=== PATIENT | female | born 1965 | race Caucasian/White ===

== ENCOUNTER 2023-08-17 16:12 | Inpatient (IN) | payer MEDICARE, MEDICAID ==
[~2023-08-17] VITALS: Ht 167.6 cm; Wt 67.1 kg
[2023-08-17 16:59] LABS: BASOPHILS # (AUTO) 0.1 K/uL (0.0-0.2); BASOPHILS % (AUTO) 0.5 % (0.0-2.0); EOSINOPHILS % (AUTO) 0.2 % (0.0-6.0); HEMATOCRIT 39 % (33-45); HEMOGLOBIN 12.8 g/dL (11.5-14.8); LYMPHOCYTES # (AUTO) 0.6 K/uL (0.8-4.8); MEAN CORPUSCULAR HEMOGLOBIN 30 PG (26.0-33.0); MEAN CORPUSCULAR HGB CONC 33 g/dl (31.0-36.0); MEAN CORPUSCULAR VOLUME 91 fL (82-100); MONOCYTES # (AUTO) 0.7 K/uL (0.1-1.30); MONOCYTES % (AUTO) 5.7 % (2.0-12.0); NEUTROPHILS # (AUTO) 10.4 K/uL (1.8-8.9); NEUTROPHILS % (AUTO) 88.6 % (43.0-81.0); PLATELET COUNT (AUTO) 320 K/uL (150-450); RED BLOOD CELL COUNT(AUTO) 4.27 MIL/uL (4.0-5.2); WHITE BLOOD COUNT (AUTO) 11.7 K/uL (4.3-11.0)
[2023-08-17 17:17] LABS: ALANINE AMINOTRANSFERASE 24 U/L (12-78); ALBUMIN 4.1 g/dL (3.4-5.0); ALKALINE PHOSPHATASE 106 U/L (46-116); ASPARTATE AMINOTRANSFERASE 20 U/L (15-37); BILIRUBIN,DIRECT 0.1 mg/dL (0.0-0.2); BILIRUBIN,TOTAL 0.4 mg/dL (0.2-1.0); CALCIUM, SERUM 9.7 mg/dL (8.5-10.1); CARBON DIOXIDE 23 mmol/L (21-32); CHLORIDE 103 mmol/L (98-107); CREATININE 1.3 mg/dL (0.6-1.3); GLUCOSE 198 mg/dL (74-106); POTASSIUM 4.4 mmol/L (3.5-5.1); SODIUM SERUM 140 mmol/L (136-145); TOTAL PROTEIN, SERUM 8.1 g/dL (6.4-8.2); UREA NITROGEN, BLOOD 17 mg/dL (7-18)
[2023-08-17 17:20] LABS: ACETAMINOPHEN <10 ug/ml (10-30); ALCOHOL, BLOOD < 3 mg/dL (0-10); SALICYLATE 2.2 mg/dL (2.8-20.0)
[2023-08-17] MEDS ORDERED: ASPI-1169 PO (17:37)
[2023-08-17] MEDS ORDERED: SITA1TAB2 PO (17:37)
[2023-08-17] MEDS ORDERED: MULT-754 PO (17:37)
[2023-08-17] MEDS ORDERED: PARO30TA4 PO (17:37)
[2023-08-17] MEDS ORDERED: LINA290C PO (17:37)
[2023-08-17] MEDS ORDERED: CYAN-51 PO (17:37)
[2023-08-17] MEDS ORDERED: AMLO5TAB4 PO (17:37)
[2023-08-17] MEDS ORDERED: BUSP15TA3 PO (17:37)
[2023-08-17] MEDS ORDERED: LACT10SO68 PO (17:37)
[2023-08-17] MEDS ORDERED: QUET200T PO (17:37)
[2023-08-17] MEDS ORDERED: OMEG1CAP40 PO (17:37)
[2023-08-17] MEDS ORDERED: LOSA50TA39 PO (17:37)
[2023-08-17] MEDS ORDERED: SIMV-49 PO (17:37)
[2023-08-17] MEDS ORDERED: MELATONIN GUMMY PO (17:37)
[2023-08-17] MEDS ORDERED: QUET50TA PO (17:37)
[2023-08-17] MEDS ORDERED: CHOL100043 PO (17:37)
[2023-08-17] MEDS ORDERED: OLANZAPINE 10 MG VIAL IM ONE (17:51)
[2023-08-17] MEDS ORDERED: LORAZEPAM INJ 2 MG/ML VIAL ONE (17:52)
[2023-08-17] MEDS: LORAZEPAM INJ 2 MG/ML VIAL IM ONE (18:00)
[2023-08-17] MEDS: OLANZAPINE 10 MG VIAL IM ONE (18:00)
[2023-08-17] MEDS: IV NS 0.9% 1,000 ML BAG IV PRN (21:00)
[2023-08-17 21:09] VITALS: O2SAT 100
[2023-08-17] MEDS: BLOOD SUGAR DIAGNOSTIC 1 EACH STRIP IN ONE (22:17)
[2023-08-17] MEDS ORDERED: LORAZEPAM 0.5 MG TABLET PO PRN (22:30)
[2023-08-17] MEDS ORDERED: TEMAZEPAM 7.5 MG CAPSULE PO PRN (22:30)
[2023-08-17] MEDS ORDERED: ACETAMINOPHEN 325 MG TABLET PO PRN (22:30)
[2023-08-17] MEDS ORDERED: MAG HYDROX/AL HYDROX/SIMETH 30 ML UDC PO PRN (22:30)
[2023-08-17] MEDS ORDERED: MAGNESIUM HYDROXIDE 30 ML UDC PO PRN (22:30)
[2023-08-18 00:12] VITALS: BP 131/92; TEMP 98.1
[2023-08-18 08:00] VITALS: BP 105/82; TEMP 97.9; O2SAT 100
[2023-08-18] MEDS: LACTULOSE 10 G/15 ML UDC (PYXIS) PO SCH (09:12)
[2023-08-18] MEDS: METFORMIN XR 500 MG TAB.SR.24H PO SCH (09:12)
[2023-08-18] MEDS: CHOLECALCIFEROL (VITAMIN D 3) 400 UNIT TABLET PO SCH (09:12)
[2023-08-18] MEDS: ASPIRIN 81 MG TAB.CHEW PO SCH (09:13)
[2023-08-18] MEDS: LOSARTAN POTASSIUM 50 MG TABLET PO SCH (09:13)
[2023-08-18] MEDS: LINAGLIPTIN 5 MG TABLET PO SCH (09:13)
[2023-08-18] MEDS: AMLODIPINE BESYLATE 5 MG TABLET PO SCH (09:13)
[2023-08-18] MEDS: MULTIVIT W/MINERALS 1 TAB TABLET PO SCH (09:13)
[2023-08-18] MEDS: CYANOCOBALAMIN 500 MCG TABLET PO SCH (09:14)
[2023-08-18] MEDS ORDERED: diphenhydrAMINE HCL 50 MG CAPSULE PO PRN (11:00)
[2023-08-18] MEDS: DIVALPROEX SODIUM 125 MG CAP.SPRINK PO SCH (12:53)
[2023-08-18] MEDS: risperiDONE 1 MG TABLET PO SCH (12:54)
[2023-08-18 16:00] VITALS: BP 122/90; TEMP 98.7; O2SAT 97
[2023-08-18 21:12] VITALS: BP 121/74; TEMP 97.8; O2SAT 98
[2023-08-18] MEDS: SIMVASTATIN 20 MG TABLET PO SCH (21:16)
[2023-08-18] MEDS: TRAZODONE 50 MG TABLET PO SCH (21:16)
[2023-08-19 08:00] VITALS: BP 145/98; TEMP 97.6; O2SAT 96
[2023-08-19 08:12] LABS: CHOLESTEROL 149 mg/dL (<200); HDL CHOLESTEROL 62 mg/dL (40-60); LDL 59 mg/dL (0-99); TRIGLYCERIDES 161 mg/dL (30-150)
[2023-08-19 09:48] LABS: CREATININE 0.9 mg/dL (0.6-1.3)
[2023-08-19] MEDS ORDERED: Z GUARD REMEDY 4 OZ OINT TP PRN (11:00)
[2023-08-19 16:00] VITALS: BP_SYST 102; BP_SYST 132; BP_DIAS 72; BP_DIAS 77; TEMP 97.5; TEMP 97.6; O2SAT 100; O2SAT 98
[2023-08-19 20:00] VITALS: BP 115/87; TEMP 97.8; O2SAT 97
[2023-08-19] MEDS: Z GUARD REMEDY 4 OZ OINT TP SCH (21:35)
[2023-08-20 08:00] VITALS: BP 108/77; TEMP 98; O2SAT 96
[2023-08-20] MEDS: LORAZEPAM 0.5 MG TABLET PO PRN (09:40)
[2023-08-20 16:00] VITALS: BP 119/90; TEMP 98; O2SAT 99
[2023-08-20 20:00] VITALS: BP 112/76; TEMP 98.1; O2SAT 98
[2023-08-21 08:00] VITALS: BP 110/90; TEMP 97.6; O2SAT 99
[2023-08-21 16:00] VITALS: BP 116/83; TEMP 97.5; O2SAT 99
[2023-08-21 20:00] VITALS: BP 118/92; TEMP 97.7; O2SAT 97
[2023-08-22 07:25] LABS: BASOPHILS % (AUTO) 0.4 % (0.0-2.0); EOSINOPHILS # (AUTO) 0.1 K/uL (0.0-0.7); EOSINOPHILS % (AUTO) 1.8 % (0.0-6.0); HEMATOCRIT 41 % (33-45); HEMOGLOBIN 13.6 g/dL (11.5-14.8); LYMPHOCYTES # (AUTO) 0.9 K/uL (0.8-4.8); LYMPHOCYTES % (AUTO) 10.3 % (20.0-44.0); MEAN CORPUSCULAR HEMOGLOBIN 31 PG (26.0-33.0); MEAN CORPUSCULAR HGB CONC 33 g/dl (31.0-36.0); MEAN CORPUSCULAR VOLUME 95 fL (82-100); MONOCYTES # (AUTO) 0.9 K/uL (0.1-1.30); MONOCYTES % (AUTO) 10.9 % (2.0-12.0); NEUTROPHILS # (AUTO) 6.4 K/uL (1.8-8.9); NEUTROPHILS % (AUTO) 76.6 % (43.0-81.0); PLATELET COUNT (AUTO) 228 K/uL (150-450); RED BLOOD CELL COUNT(AUTO) 4.35 MIL/uL (4.0-5.2); RED CELL DISTRIBUTION WIDTH 14.8 % (11.5-15.0); WHITE BLOOD COUNT (AUTO) 8.3 K/uL (4.3-11.0)
[2023-08-22 08:00] VITALS: BP 133/89; TEMP 97.7; O2SAT 97
[2023-08-22 11:57] LABS: ALBUMIN 3.6 g/dL (3.4-5.0); BILIRUBIN,TOTAL 0.3 mg/dL (0.2-1.0); CALCIUM, SERUM 9.3 mg/dL (8.5-10.1); CREATININE 0.8 mg/dL (0.6-1.3); POTASSIUM 4.3 mmol/L (3.5-5.1); TOTAL PROTEIN, SERUM 7.6 g/dL (6.4-8.2)
[2023-08-22 16:00] VITALS: BP 115/65; TEMP 98.2; O2SAT 96
[2023-08-22 20:19] VITALS: BP 110/70; TEMP 98; O2SAT 95
[2023-08-22 20:48] LABS: APPEARANCE,URINE SLIGHTLY CLOUDY (CLEAR); BILIRUBIN,URINE 1+ (NEGATIVE); BLOOD, URINE NEGATIVE Ery/uL (NEGATIVE); COLOR,URINE YELLOW (YELLOW); KETONES,URINE TRACE mg/dL (NEGATIVE); LEUKOCYTE ESTERASE ,URINE NEGATIVE (NEGATIVE); NITRITE, URINE NEGATIVE (NEGATIVE); PH,URINE 6.5 (5.0-8.0); PROTEIN,URINE TRACE mg/dl (NEGATIVE); UGLUCOSE NEGATIVE (NEGATIVE)
[2023-08-22 21:29] LABS: ADD URINE CULTURE NO; BACTERIA,URINE RARE /HPF (None Seen); MUCUS,URINE Few /LPF (None Seen); RBC,URINE 0-2 /HPF (0-2); SQUAMOUS EPITHELIAL CELL,UR 21-50 /HPF (None Seen); WBC,URINE 0-2 /HPF (0-3)
[2023-08-23 08:00] VITALS: BP 100/64; TEMP 98.6; O2SAT 98
[2023-08-23 16:00] VITALS: BP 105/67; TEMP 97.9; O2SAT 97
[2023-08-23 20:54] VITALS: BP 104/70; TEMP 97.9; O2SAT 99
[2023-08-24 08:00] VITALS: BP 108/63; TEMP 97.7; O2SAT 98
[2023-08-24 16:00] VITALS: BP 113/77; TEMP 98.1; O2SAT 98
[2023-08-24 20:45] VITALS: BP 116/78; TEMP 97.9; O2SAT 96
[2023-08-25 08:00] VITALS: BP 103/63; TEMP 97.9; O2SAT 96
[2023-08-25] MEDS: GLUCERNA SHAKE 237 ML CAN PO SCH (09:40)
[2023-08-25 16:00] VITALS: BP 100/72; TEMP 98.6; O2SAT 99
[2023-08-25 20:19] VITALS: BP 122/85; TEMP 97.9; O2SAT 100
[2023-08-26 08:00] VITALS: BP 103/57; TEMP 98.8; O2SAT 94
[2023-08-26 16:00] VITALS: BP 113/73; TEMP 98.6; O2SAT 98
[2023-08-26] MEDS: risperiDONE 1 MG TABLET PO SCH (17:20)
[2023-08-27 08:00] VITALS: BP 97/51; TEMP 97.6; O2SAT 98
[2023-08-27] MEDS: NITROFURANTOIN/MONOHYDRATE MACROCRYSTALS 100 MG CAPSULE PO SCH (12:01)
[2023-08-27 16:00] VITALS: BP 116/77; TEMP 98.6; O2SAT 98
[2023-08-27 20:00] VITALS: BP 142/86; TEMP 97.7; O2SAT 100
[2023-08-28 08:00] VITALS: BP 114/84; TEMP 98; O2SAT 98
[2023-08-28] MEDS: LOSARTAN POTASSIUM 50 MG TABLET PO SCH (08:33)
[2023-08-28 15:59] VITALS: BP 121/89; TEMP 98.6; O2SAT 96
[2023-08-28 21:35] VITALS: BP 115/74; TEMP 97.9; O2SAT 97
[2023-08-29 08:00] VITALS: BP 134/98; TEMP 97.7; O2SAT 97
[2023-08-29 16:00] VITALS: BP 109/79; TEMP 97.9; O2SAT 95
[2023-08-29 21:14] VITALS: BP 123/93; TEMP 98; O2SAT 98
[2023-08-30 08:00] VITALS: BP 133/63; TEMP 98.6; O2SAT 96
[2023-08-30 16:00] VITALS: BP 99/76; TEMP 98.7; O2SAT 97
[2023-08-30 20:44] VITALS: BP 128/96; TEMP 98.2; O2SAT 95
[2023-08-31 08:00] VITALS: BP 145/90; TEMP 97.9; O2SAT 98
[2023-08-31 09:36] VITALS: BP 145/90
== END 2023-08-31 11:15 | DRG 885 ==
LOC: ER 16:19 → GPS 19:38
PROVIDERS: ADMIT Psychiatry & Neurology Psychiatry; ATTEND Nurse Practitioner Acute Care
DX: F39 Unspecified mood [affective] disorder (principal); F79 Unspecified intellectual disabilities; N39.0 Urinary tract infection, site not specified; F29 Unspecified psychosis not due to a substance or known physiological condition; E78.00 Pure hypercholesterolemia, unspecified; B96.20 Unspecified Escherichia coli [E. coli] as the cause of diseases classified elsewhere; F41.9 Anxiety disorder, unspecified; E11.9 Type 2 diabetes mellitus without complications; M62.81 Muscle weakness (generalized); I10 Essential (primary) hypertension; Z79.899 Other long term (current) drug therapy; Z79.82 Long term (current) use of aspirin; Z79.84 Long term (current) use of oral hypoglycemic drugs; Z91.81 History of falling
CPT/HCPCS: 36415; 80048-TC; 80053-TC; 80061-TC; 80076-TC; 80164-TC; 81001; 82565-TC; 82962-TC; 85025-TC; 87081-TC; 87086-TC; 92526; 92611-TC; 97110-TC; 97116-TC; 97530-TC; G0480; J2060; J3490; J7030